=== PATIENT | male | born 1995 | race Caucasian/White ===

== ENCOUNTER 2016-09-06 07:02 | Emergency (ER) | payer BC ==
[2016-09-06 07:24] VITALS: BP 140/93
--- NOTE | 2016-09-06 07:39 | UC ---
Skin Complaint HPI - HPI Summary HPI Summary: laceration left ankle x 2 weeks now the area is red and tender, concern about wound infection no fever, no chills, + clear discharge for the wound - History of Current Complaint Chief Complaint: UCLowerExtremity Time Seen by Provider: 09/06/16 07:06 Stated Complaint: left ankle complaint Hx Obtained From: Patient Onset/Duration: Sudden Onset, Lasting Weeks - 2, Still Present Timing: Constant Onset Severity: Moderate Current Severity: Moderate Location: Other - left ankle Character: Swelling, Pain, Redness, Painful Aggravating: Touch Alleviating: Nothing Associated Signs & Symptoms: Positive: Tenderness. Negative: Nausea, Vomiting, Numbness, Weakness, Red Streaks - Allergy/Home Medications Allergies/Adverse Reactions: Allergies Allergy/AdvReac Type Severity Reaction Status Date / Time Gluten Meal Allergy Rash Verified 09/06/16 07:25 Home Medications: Home Medications Insulin GLARGINE(*) [Lantus(*)] 45 units SUBCUT Q24H 09/06/16 [History Confirmed 09/06/16] Insulin Lispro [Humalog] 10 unit SC TID 09/06/16 [History Confirmed 09/06/16] Review of Systems Constitutional: Negative Eyes: Negative ENT: Negative Respiratory: Negative Cardiovascular: Negative All Other Systems Reviewed And Are Negative: Yes PMH/Surg Hx/FS Hx/Imm Hx Endocrine History Of: Reports: Diabetes - Surgical History Surgical History: Yes Surgery Procedure, Year, and Place: piloneal cyst removed - Family History Known Family History: Positive: Hypertension, Diabetes - Social History Alcohol Use: None Substance Use Type: Marijuana Substance Use Comment - Amount & Last Used: frequent usage Smoking Status (MU): Heavy Every Day Tobacco Smoker Type: Cigarettes Amount Used/How Often: 1 ppd Length of Time of Smoking/Using Tobacco: started at age 16 Have You Smoked in the Last Year: Yes - Immunization History Most Recent Tetanus Shot: unknown Physical Exam Triage Information Reviewed: Yes Appearance: Well-Appearing, No Pain Distress, Well-Nourished Vital Signs: Initial Vital Signs Temp 98.6 F 09/06/16 07:13 Pulse 102 09/06/16 07:13 Resp 16 09/06/16 07:13 BP 140/93 09/06/16 07:13 Pulse Ox 98 09/06/16 07:13 Vital Signs Reviewed: Yes Eyes: Positive: Conjunctiva Clear ENT: Positive: Normal ENT inspection, Hearing grossly normal, Pharynx normal Neck exam: Normal Neck: Positive: Supple, Nontender, No Lymphadenopathy Respiratory: Positive: Chest non-tender, Lungs clear, Normal breath sounds Cardiovascular: Positive: RRR, No Murmur, Pulses Normal Musculoskeletal Exam: Normal Skin: Positive: Other - + laceration left medial ankle , + erythema, mild swelling , tender to touch, + clear discharge Course/Dx - Diagnoses Provider Diagnoses: wound infection left ankle Discharge - Discharge Plan Condition: Stable Disposition: HOME Prescriptions: Cephalexin CAP* [Keflex CAP*] 500 mg PO TID #30 cap Patient Education Materials: Wound Infection (ED) Referrals: Neida Urrutia MD [Primary Care Provider] - 7 Days
== END 2016-09-06 07:44 | disposition home or self-care (01) ==
LOC: UCCORT 07:02
DX: S91.012S Laceration without foreign body, left ankle, sequela (principal); L08.9 Local infection of the skin and subcutaneous tissue, unspecified; X58.XXXS Exposure to other specified factors, sequela; Y92.9 Unspecified place or not applicable; E11.9 Type 2 diabetes mellitus without complications; Z79.4 Long term (current) use of insulin; F17.210 Nicotine dependence, cigarettes, uncomplicated
CPT/HCPCS: 99212; G0463

== ENCOUNTER 2018-06-08 08:56 | Emergency (ER) | payer BC ==
[2018-06-08 09:20] VITALS: BP 114/84
--- NOTE | 2018-06-08 10:30 | UC ---
Respiratory Complaint HPI - HPI Summary HPI Summary: Pt presents with c/o productive cough, chills, malaise X 2 weeks. - History of Current Complaint Chief Complaint: UCRespiratory Stated Complaint: CONGESTION COUGH ACHY Time Seen by Provider: 06/08/18 09:54 Hx Obtained From: Patient Onset/Duration: Gradual Onset, Lasting Weeks, Still Present, Worse Since - onset Timing: Constant Severity Initially: Mild Severity Currently: Moderate Pain Intensity: 4 Pain Scale Used: 0-10 Numeric Character: Cough: Productive, Sputum Description: - brown Aggravating Factors: Deep Breaths, Recumbent Position Alleviating Factors: Nothing Associated Signs And Symptoms: Positive: Chills, Hemoptysis, URI, Nasal Congestion - Risk Factors Cardiac Risk Factors: Diabetes Pseudomonas Risk Factors: Negative Tuberculosis Risk Factors: Diabetes - Allergies/Home Medications Allergies/Adverse Reactions: Allergies Allergy/AdvReac Type Severity Reaction Status Date / Time gluten Allergy Rash Verified 06/08/18 09:17 PMH/Surg Hx/FS Hx/Imm Hx Previously Healthy: Yes Endocrine History: Diabetes - Surgical History Surgical History: Yes Surgery Procedure, Year, and Place: cyst removed - Family History Known Family History: Positive: Hypertension, Diabetes - Social History Occupation: Employed Full-time Lives: With Family Alcohol Use: Occasionally Substance Use Type: Marijuana Substance Use Comment - Amount & Last Used: daily Smoking Status (MU): Heavy Every Day Tobacco Smoker Type: Cigarettes Amount Used/How Often: 1 ppd Length of Time of Smoking/Using Tobacco: started at age 16 Have You Smoked in the Last Year: Yes - Immunization History Most Recent Tetanus Shot: unknown Vaccination Up to Date: No Review of Systems All Other Systems Reviewed And Are Negative: Yes Constitutional: Positive: Chills, Fatigue Skin: Positive: Negative Eyes: Positive: Negative ENT: Positive: Sore Throat, Sinus Congestion Respiratory: Positive: Shortness Of Breath, Cough Cardiovascular: Positive: Negative Gastrointestinal: Positive: Negative Genitourinary: Positive: Negative Motor: Positive: Negative Neurovascular: Positive: Negative Musculoskeletal: Positive: Myalgia Neurological: Positive: Headache Psychological: Positive: Negative Is Patient Immunocompromised?: No Physical Exam Triage Information Reviewed: Yes Appearance: Ill-Appearing, Other: - unkempt Vital Signs: Initial Vital Signs Temp 98.3 F 06/08/18 09:16 Pulse 104 06/08/18 09:16 Resp 18 06/08/18 09:16 BP 114/84 06/08/18 09:16 Pulse Ox 98 06/08/18 09:16 Vital Signs Reviewed: Yes Eye Exam: Normal ENT: Positive: Nasal congestion Dental Exam: Normal Neck exam: Normal Respiratory Exam: Normal Respiratory: Positive: No respiratory distress Cardiovascular Exam: Normal Musculoskeletal Exam: Normal Neurological Exam: Normal Psychological Exam: Normal Skin Exam: Normal UC Diagnostic Evaluation - Laboratory O2 Sat by Pulse Oximetry: 98 Respiratory Course/Dx - Differential Dx/Diagnosis Differential Diagnosis/HQI/PQRI: Bronchitis, Influenza Provider Diagnosis: Bronchitis Discharge - Sign-Out/Discharge Documenting (check all that apply): Patient Departure All imaging exams completed and their final reports reviewed: Yes - Discharge Plan Condition: Stable Disposition: HOME Prescriptions: Albuterol HFA INHALER* [Ventolin HFA Inhaler*] 1 - 2 puff INH Q6H PRN #1 mdi PRN Reason: Sob/Wheezing Azithromycin TAB* [Zithromax TAB (Z-CHARLES) 250 mg #6 tabs] 2 tab PO .TODAY, THEN 1 DAILY #1 charles Benzonatate CAP* [Tessalon 100 MG CAP*] 200 mg PO Q8H PRN #30 cap PRN Reason: Cough Patient Education Materials: Acute Bronchitis (ED) Referrals: Neida Urrutia MD [Primary Care Provider] - If Needed - Billing Disposition and Condition Condition: STABLE Disposition: Home
== END 2018-06-08 10:23 | disposition home or self-care (01) ==
LOC: UCCORT 08:56
DX: J40 Bronchitis, not specified as acute or chronic (principal); F17.210 Nicotine dependence, cigarettes, uncomplicated
CPT/HCPCS: 71046; 99212; G0463

== ENCOUNTER 2019-05-30 08:58 | Emergency (ER) | payer BC ==
[2019-05-30 09:28] VITALS: BP 147/87
--- NOTE | 2019-05-30 10:23 | UC ---
Upper Extremity HPI - HPI Summary HPI Summary: Pt presents with c/o bilateral arm pain with right arm more painful than left. Pain is intermittent and worsens with activity. 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 denies injury recent or past. Pt describes pain as burning,, tingling and numbness. NO rash. Pt is a type 1 diabetic and has insulin pump in right upper lateral tricep - History of Current Complaint Chief Complaint: UCUpperExtremity Stated Complaint: BILAT ARM/HAND PAIN/NUMBNESS Time Seen by Provider: 05/30/19 10:08 Hx Obtained From: Patient ?: No Onset/Duration: Gradual Onset, Lasting Minutes, Lasting Hours, Resolved - at time of PE Severity Initially: Mild Severity Currently: None Pain Intensity: 1 Location Of Pain: Is Discrete @ - bilateral upper arms, Radiates To - from upper shoulders to finger tips bilateral Aggravating Factor(s): Movement, Lifting, Flexion, Extension, Internal/External Rotation Alleviating Factor(s): Rest Associated Signs And Symptoms: Positive: Weakness, Numbness/Tingling Related History: Dominant Hand Right - Risk Factors Non-Orthopedic Risk Factor: Negative DVT Risk Factors: Negative Septic Arthritis Risk Factor: Negative Compartment Syndrome Risk Factors: Paresthesias - Allergies/Home Medications Allergies/Adverse Reactions: Allergies Allergy/AdvReac Type Severity Reaction Status Date / Time gluten Allergy Rash Verified 05/30/19 09:24 Home Medications: Home Medications Cholecalciferol TAB* [Vitamin D TAB*] 2,000 units PO DAILY 05/30/19 [History Confirmed 05/30/19] PMH/Surg Hx/FS Hx/Imm Hx Previously Healthy: Yes - Surgical History Surgical History: Yes Surgery Procedure, Year, and Place: Pilonidal Cystectomy, 2011, [place] - Family History Known Family History: Positive: Hypertension, Diabetes - Social History Occupation: Employed Full-time Lives: With Family Alcohol Use: Occasionally Substance Use Type: Marijuana Substance Use Comment - Amount & Last Used: daily Smoking Status (MU): Heavy Every Day Tobacco Smoker Type: Cigarettes Amount Used/How Often: 1/2 PPD Length of Time of Smoking/Using Tobacco: Since Age 16 Have You Smoked in the Last Year: Yes - Immunization History Most Recent Tetanus Shot: 04/12/14 Vaccination Up to Date: No Review of Systems All Other Systems Reviewed And Are Negative: Yes Constitutional: Positive: Negative Skin: Positive: Negative Eyes: Positive: Negative ENT: Positive: Negative Respiratory: Positive: Negative Cardiovascular: Positive: Negative Gastrointestinal: Positive: Negative Genitourinary: Positive: Negative Motor: Positive: Weakness Neurovascular: Positive: Decreased Sensation - resolved Musculoskeletal: Positive: Myalgia Neurological: Positive: Paresthesia Psychological: Positive: Negative Is Patient Immunocompromised?: No Physical Exam Triage Information Reviewed: Yes Appearance: Well-Appearing Vital Signs: Initial Vital Signs Temp 98.1 F 05/30/19 09:21 Pulse 92 05/30/19 09:21 Resp 16 05/30/19 09:21 BP 147/87 05/30/19 09:21 Pulse Ox 99 05/30/19 09:21 Vital Signs Reviewed: Yes Eye Exam: Normal ENT Exam: Normal Dental Exam: Normal Neck exam: Normal Respiratory Exam: Normal Cardiovascular Exam: Normal Musculoskeletal Exam: Normal Musculoskeletal: Positive: Strength Intact, ROM Intact, No Edema Neurological Exam: Normal Neurological: Positive: Alert, Muscle Tone Normal Psychological Exam: Normal Skin Exam: Normal Upper Extremity Course/Dx - Course Course Of Treatment: Pt states that he will be changing insulin pump location in a couple of days. He states numbness and tingling began after he had put pump in current location - Differential Dx/Diagnosis Differential Diagnosis/HQI/PQRI: Strain, Sprain Provider Diagnosis: Pinched nerve, Neuritis Discharge ED - Sign-Out/Discharge Documenting (check all that apply): Patient Departure All imaging exams completed and their final reports reviewed: No Studies - Discharge Plan Condition: Stable Disposition: HOME Patient Education Materials: Paresthesia (ED), Arm Pain (ED) Forms: *Work Release Referrals: [facility] [Outside] - As Soon As Possible No Primary Care Phys,NOPCP [Primary Care Provider] - Additional Instructions: Please establish care with a PCP as soon as possible. Additionally, we have provided with a list of dentist for you to establish care with. - Billing Disposition and Condition Condition: STABLE Disposition: Home - Attestation Statements Provider Attestation: Per institutional requirements, I have reviewed the chart, however, I was not consulted specifically or made aware of this patient by the midlevel provider. I did not personally evaluate, interact with , or disposition this patient.
== END 2019-05-30 10:35 | disposition home or self-care (01) ==
LOC: UCCORT 08:58
DX: G58.9 Mononeuropathy, unspecified (principal); M79.2 Neuralgia and neuritis, unspecified; F17.210 Nicotine dependence, cigarettes, uncomplicated; Z91.018 Allergy to other foods
CPT/HCPCS: 99211; G0463

== ENCOUNTER 2019-07-16 21:39 | Emergency (ER) | payer BC ==
[2019-07-16 21:53] VITALS: BP 145/92
[2019-07-16 22:04] LABS: Influenza A Molecular Negative (Negative); Influenza B Molecular Negative (Negative)
--- NOTE | 2019-07-16 22:05 | UC ---
FLU HPI - HPI Summary HPI Summary: 23 yo diabetic with over a week of erratic blood sugars (from 50 t0 300), malaise, cough, nasal congestion, sweats and low grade fever. He is bothered by the amount of nasal congestion. Smokes and has been coughing. He has pain with breathing in the left low ribs. - History of Current Complaint Chief Complaint: UCRespiratory Stated Complaint: STUFFY NOSE, COUGH Time Seen by Provider: 07/16/19 21:57 Hx Obtained From: Patient Onset/Duration: Gradual Onset, Lasting Days Severity Currently: Mild Severity Initially: Moderate Pain Intensity: 5 Associated Signs & Symptoms: Positive: Cough, Sore Throat, Headache - Risk Factors Influenza Risk Factors: Chronic Medical or Immunosuppresive Condition - Allergy/Home Medications Allergies/Adverse Reactions: Allergies Allergy/AdvReac Type Severity Reaction Status Date / Time gluten Allergy Unknown Rash Verified 07/16/19 21:46 PMH/Surg Hx/FS Hx/Imm Hx Endocrine History: Diabetes GI/ History: Other - celiac disease - Surgical History Surgical History: Yes Surgery Procedure, Year, and Place: Pilonidal Cystectomy, 2011, [place] - Family History Known Family History: Positive: Hypertension, Diabetes - Social History Occupation: Employed Full-time - retirement work at [employer] Alcohol Use: Occasionally Substance Use Type: Marijuana Substance Use Comment - Amount & Last Used: daily Smoking Status (MU): Heavy Every Day Tobacco Smoker Type: Cigarettes Amount Used/How Often: 1/2 PPD Length of Time of Smoking/Using Tobacco: Since Age 16 Have You Smoked in the Last Year: Yes Household Exposure Type: Cigarettes - Immunization History Most Recent Tetanus Shot: 04/12/14 Vaccination Up to Date: No Review of Systems All Other Systems Reviewed And Are Negative: Yes Constitutional: Positive: Fever - low grade last week, Fatigue Skin: Positive: Negative ENT: Positive: Sore Throat, Nasal Discharge, Sinus Congestion, Sinus Pain/ Tenderness Respiratory: Positive: Shortness Of Breath, Cough Cardiovascular: Positive: Chest Pain - left low ribs Gastrointestinal: Positive: Diarrhea - loose stools today Genitourinary: Positive: Negative Motor: Positive: Negative Neurovascular: Positive: Negative Musculoskeletal: Positive: Myalgia Neurological: Positive: Headache Psychological: Positive: Negative Is Patient Immunocompromised?: No Physical Exam Triage Information Reviewed: Yes Appearance: Ill-Appearing - looks chronically unwell, unkempt Vital Signs: Initial Vital Signs Temp 97.5 F 07/16/19 21:48 Pulse 97 07/16/19 21:48 Resp 18 07/16/19 21:48 BP 145/92 07/16/19 21:48 Pulse Ox 100 07/16/19 21:48 Eye Exam: Normal ENT: Positive: Pharyngeal erythema, TM dull - bilateral serous fluid, Sinus tenderness Dental: Positive: Gross Decay/Caries @ - throughout Neck: Positive: Supple, Nontender, No Lymphadenopathy Respiratory Exam: Other - tender to palpation left lateral lower ribs 8-9 in anterior axillary line. Respiratory: Positive: Lungs clear, Normal breath sounds Cardiovascular Exam: Normal Cardiovascular: Positive: RRR, No Murmur Abdomen Description: Positive: Nontender, No Organomegaly, Soft Musculoskeletal Exam: Normal Neurological Exam: Normal Psychological Exam: Other - anxious and aware that he is hyperventilating at times due to nasal congestion Skin Exam: Normal Diagnostics - Laboratory Lab Results: rapid flu negative Flu Course/Dx - Course Course Of Treatment: given duration and smoking hx, treat sinus infection with sinusitis. Flu negative. Off work. Advised normal saline nasal rinses and flonase if needed - Differential Dx/Diagnosis Differential Diagnosis/HQI/PQRI: Bronchitis, Influenza, Upper Respiratory Infection, Other - sinusitis Provider Diagnosis: Sinusitis Discharge ED - Sign-Out/Discharge Documenting (check all that apply): Patient Departure All imaging exams completed and their final reports reviewed: No Studies - Discharge Plan Condition: Stable Disposition: HOME Prescriptions: Amoxicillin PO (*) [Amoxicillin 875 MG (*)] 875 mg PO BID #20 tab Patient Education Materials: Sinusitis (ED) Forms: *Work Release Referrals: No Primary Care Phys,NOPCP [Primary Care Provider] - Additional Instructions: Your flu testing was negative. Treat sinusitis with amoxicillin; please ensure that you take the full course of the antibiotic given. follow up if you continue to have higly variable blood sugars. Use normal saline to help to relieve nasal congestion. You could also use over the counter fluticasone (flonase) spray--2 sprays to both nostrils once daily. You can use acetaminophen or ibupofen for relief of sinus pain. - Billing Disposition and Condition Condition: STABLE Disposition: Home
[2019-07-16] MEDS ORDERED: Amoxicillin PO (*) 500 MG CAP PO ONE (22:09)
== END 2019-07-16 22:23 | disposition home or self-care (01) ==
LOC: UCCORT 21:39
DX: J32.9 Chronic sinusitis, unspecified (principal); J02.9 Acute pharyngitis, unspecified; E11.9 Type 2 diabetes mellitus without complications; R05 Cough; F17.210 Nicotine dependence, cigarettes, uncomplicated; R06.02 Shortness of breath; R19.7 Diarrhea, unspecified; R07.9 Chest pain, unspecified; M79.10 Myalgia, unspecified site; Z91.018 Allergy to other foods
CPT/HCPCS: 99212; A9270-GY; G0463

== ENCOUNTER 2019-08-06 21:36 | Emergency (ER) | payer BC ==
[2019-08-06 21:45] VITALS: BP 146/84
--- NOTE | 2019-08-06 21:50 | UC ---
Hand/Wrist HPI - HPI Summary HPI Summary: 23-year-old insulin-dependent diabetic male who has some left arm pain. He has had tendinitis in the wrist before. 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 He states he's had no injury to the arm or wrist. He denies any injecting into his arm or wrist however he does inject his insulin near his deltoid muscle. He is under the care of the [facility] in [place] for his diabetes. Patient is requesting a note for work tonight. He states that he went to the emergency room last night and he was given an injection for pain. - History Of Current Complaint Chief Complaint: UCUpperExtremity Stated Complaint: LEFT ARM COMPLAINT Time Seen by Provider: 08/06/19 21:42 Hx Obtained From: Patient ?: No Onset/Duration: Gradual Onset Severity Initially: Mild Severity Currently: Mild Pain Intensity: 3 Character Of Pain: Aching Aggravating Factor(s): Flexion, Extension Alleviating Factor(s): Nothing Associated Signs And Symptoms: Positive: Negative Related History: Similar Episode/Dx As - Tendinitis several weeks ago which did resolve - Allergies/Home Medications Allergies/Adverse Reactions: Allergies Allergy/AdvReac Type Severity Reaction Status Date / Time gluten Allergy Unknown Rash Verified 08/06/19 21:45 Home Medications: Home Medications Insulin GLARGINE(*) [Lantus 100 units/ml 10 ml VIAL (*)] 50 units SUBCUT QAM [History Confirmed 08/06/19] Insulin Lispro [Humalog 100 units/ml 5 ml x 3 Pens] 1 dose SC AC 09/06/16 [ History Confirmed 08/06/19] Cholecalciferol TAB* [Vitamin D TAB*] 2,000 units PO DAILY 05/30/19 [History Confirmed 08/06/19] PMH/Surg Hx/FS Hx/Imm Hx Previously Healthy: Yes Endocrine History: Diabetes - Surgical History Surgical History: Yes Surgery Procedure, Year, and Place: Pilonidal Cystectomy, 2011, [place] - Family History Known Family History: Positive: Hypertension, Diabetes - Social History Alcohol Use: Occasionally Substance Use Type: Marijuana Substance Use Comment - Amount & Last Used: daily Smoking Status (MU): Heavy Every Day Tobacco Smoker Type: Cigarettes Amount Used/How Often: 1/2 PPD Length of Time of Smoking/Using Tobacco: Since Age 16 Have You Smoked in the Last Year: Yes Household Exposure Type: Cigarettes - Immunization History Most Recent Tetanus Shot: 04/12/14 Vaccination Up to Date: No Review of Systems All Other Systems Reviewed And Are Negative: Yes Musculoskeletal: Positive: Other: - Pain with flexion and extension of his wrist which shoots up his arm. Is Patient Immunocompromised?: No Physical Exam Triage Information Reviewed: Yes Appearance: Well-Appearing, No Pain Distress, Well-Nourished Vital Signs: Initial Vital Signs Temp 97.7 F 08/06/19 21:40 Pulse 95 08/06/19 21:40 Resp 18 08/06/19 21:40 BP 146/84 08/06/19 21:40 Pulse Ox 99 08/06/19 21:40 Vital Signs Reviewed: Yes Musculoskeletal: Positive: Strength Intact, ROM Intact, Other: - Good peripheral pulses, neuro sensation and capillary refill, full range of motion. Good arm strength against resistance. Neurological Exam: Normal Psychological Exam: Normal Skin Exam: Normal Hand/Wrist Course/Dx - Course Course Of Treatment: The patient was given a cock-up splint. If he continues to have pain he is to follow-up either with an orthopedist or the [facility]. He can take Motrin for pain. He can keep the wrist splint on for comfort. He was given a note for no work tonight. - Differential Dx/Diagnosis Provider Diagnosis: Tendonitis of wrist, left Discharge ED - Sign-Out/Discharge Documenting (check all that apply): Patient Departure All imaging exams completed and their final reports reviewed: No Studies - Discharge Plan Condition: Good Disposition: HOME Patient Education Materials: Tendinitis (ED) Forms: *Work Release Referrals: No Primary Care Phys,NOPCP [Primary Care Provider] - Paola Mitchell MD [Medical Doctor] - Additional Instructions: Take ibuprofen every 8 hours for pain, apply warm moist towels to the sore area , avoid repetitive motion. Definite follow-up with the orthopedist or your specialist at [facility] if you have continued arm pain. - Billing Disposition and Condition Condition: GOOD Disposition: Home
== END 2019-08-06 21:55 | disposition home or self-care (01) ==
LOC: UCCORT 21:36
DX: M77.9 Enthesopathy, unspecified (principal); E11.9 Type 2 diabetes mellitus without complications; Z91.018 Allergy to other foods; F17.210 Nicotine dependence, cigarettes, uncomplicated; Z79.4 Long term (current) use of insulin
CPT/HCPCS: 99212; G0463